=== PATIENT | male | born 1995 ===

== ENCOUNTER 2022-06-04 12:13 | Inpatient (IN) | payer BC ==
[~2022-06-04] VITALS: Ht 182.9 cm; Wt 77.4 kg
[2022-06-04] MEDS ORDERED: APRISO0.375 GM PO (12:35)
[2022-06-04] MEDS ORDERED: BENTYL 20MG20 MG/TAB PO (12:35)
[2022-06-04] MEDS ORDERED: PROTONIX 40MG T40 MG PO (12:35)
[2022-06-04 12:49] VITALS: BP 145/55; PULSE 79; TEMP 101.3
[2022-06-04] MEDS ORDERED: PREDNISONE10 MG PO (12:49)
--- NOTE | 2022-06-04 12:50 | NUR ---
PT ARRIVED VIA EMS @ 1225. PT HAS BEEN UP TO THE BR X2 ET IS CURRENTLY THERE, HAD 1 STOOL THAT WAS FLUSHED. PT INSTRUCTED NOT TO FLUSH NEXT STOOL, VERBALIZES UNDERSTANDING. URINE IS DARK SUJATA ET CLOUDY. PT RATES UPPER ABDOMINAL PAIN 4/10, DENIES NAUSEA. PT STATES THAT HE DID NOT FINISH LEVAQUIN THAT WAS PRESCRIBED EARLIER IN MONTH R/T IT CAUSING DIARRHEA. Ron WALLER MADE AWARE OF PT'S ARRIVAL.
[2022-06-04 14:08] LABS: BASO # 0.1 K/mm3 (0.0-0.2); BASO % 0.7 % (0.0-2.0); EOS # 0.1 K/mm3 (0.0-0.7); EOS % 1.4 % (0.0-4.0); GRAN # 7.7 K/mm3 (1.4-6.5); GRAN % 81.5 % (42.2-75.2); HEMATOCRIT 40.6 % (42.0-52.0); HEMOGLOBIN 14.3 g/dl (13.5-18.0); LYMPH # 0.7 K/mm3 (1.2-3.4); LYMPH % 6.9 % (20.0-51.0); MEAN CELL VOLUME 92 fl (80.0-100.0); MEAN CORPUSCULAR HEMOGLOBIN 33 pg (27-31); MEAN CORPUSCULAR HGB CONC 35 g/dl (33.0-37.0); MEAN PLATELET VOLUME 9.2 fl (7.4-10.4); MONO # 0.8 K/mm3 (0.1-0.6); MONO % 8.8 % (1.7-9.3); PLATELET COUNT 211 K/mm3 (130-400); REDCELL DISTRIBUTION WIDTH-CV 11.7 % (11.5-14.5)
[2022-06-04 14:16] LABS: INR 1.4 (0.8-3.0); PROTHROMBIN TIME 16.3 SECONDS (9.7-12.8)
[2022-06-04 14:31] LABS: ALBUMIN 2.6 gm/dL (3.5-5.0); BILIRUBIN,TOTAL 0.6 mg/dL (0.2-1.2); C-REACTIVE PROTEIN 12.27 mg/dL (0.00-0.50); CALCIUM 8.5 mg/dL (8.4-10.2); CHOLESTEROL RISK RATIO 2.8; CREATININE, serum 0.83 mg/dL (0.72-1.25); MAGNESIUM 1.7 mg/dL (1.6-2.6); POTASSIUM 3.6 mmol/L (3.5-4.5); TOTAL PROTEIN 6.2 gm/dL (6.2-8.1)
[2022-06-04 14:51] LABS: THYROID STIMULATING HORMONE 0.623 uIU/mL (0.350-4.940)
[2022-06-04 15:12] VITALS: BP 101/55; PULSE 68; TEMP 100.5
--- NOTE | 2022-06-04 18:40 | NUR ---
PT HAS RESTED IN BED WITH EYES CLOSED MOST OF AFTERNOON, FAMILY HAS BEEN HERE TO VISIT. IVF INFUSING INTO LEFT FA. PT STATES THAT PAIN HAS BEEN MILD, DENIES NEED FOR PAIN MEDICATION @ THIS TIME. PT HAS BEEN UP TO BR TO HAVE BROWN/RED LIQUID STOOLS BUT UA HAS NOT BEEN COLLECTED, HAS NOT VOIDED SINCE ARRIVING. PT DENIES NAUSEA. RESPIRATIONS HAVE BEEN UNLABORED ON ROOM AIR. CALL LIGHT WITHIN REACH.
--- NOTE | 2022-06-04 20:00 | NUR ---
PT IN BED, IS ALERT AND ORIENTED X4. HAS IVF TO LEFT FOREARM INFUSING WITHOUT PROBLEM. HAS RT FOREARM INT WITH IV POTASSIUM INFUSING WITHOUT PROBLEM. NEW ORDER FOR CDIFF STOOL PER DR MEDINA. IS NPO. ABD FLAT, BS ACTIVE. WAITING FOR UA.
[2022-06-04 20:03] VITALS: BP 106/56; PULSE 54; TEMP 98.9
--- NOTE | 2022-06-04 22:00 | NUR ---
PT CDIFF NEGATIVE. DENIES NEED FOR PAIN MEDS AT THIS TIME.
[2022-06-04 22:18] LABS: CLOSTRIDIUM DIFF A/B NEG; CLOSTRIDIUM DIFF A/B INTERP No C.diff present
[2022-06-04 23:19] VITALS: BP 111/66; PULSE 56; TEMP 97.6
[2022-06-05 03:45] VITALS: BP 102/58; PULSE 59; TEMP 97.6
--- NOTE | 2022-06-05 06:00 | NUR ---
PT ABLE TO VOID PER URINAL, SUJATA CLOUDY URINE. DENIES PAIN. IVF CONTINUE.
[2022-06-05 06:18] LABS: BASO % 0.2 % (0.0-2.0); GRAN # 5.1 K/mm3 (1.4-6.5); GRAN % 85.6 % (42.2-75.2); HEMOGLOBIN 12.9 g/dl (13.5-18.0); LYMPH # 0.7 K/mm3 (1.2-3.4); LYMPH % 11.8 % (20.0-51.0); MEAN CELL VOLUME 93 fl (80.0-100.0); MEAN CORPUSCULAR HEMOGLOBIN 33 pg (27-31); MEAN CORPUSCULAR HGB CONC 35 g/dl (33.0-37.0); MEAN PLATELET VOLUME 8.9 fl (7.4-10.4); MONO # 0.1 K/mm3 (0.1-0.6); MONO % 1.9 % (1.7-9.3); PLATELET COUNT 234 K/mm3 (130-400); RED BLOOD COUNT 3.95 M/mm3 (4.20-5.60); REDCELL DISTRIBUTION WIDTH-CV 11.9 % (11.5-14.5)
[2022-06-05 06:28] LABS: HEMATOCRIT 36.9 % (42.0-52.0)
[2022-06-05 06:39] LABS: CALCIUM 8.5 mg/dL (8.4-10.2); CREATININE, serum 0.69 mg/dL (0.72-1.25); POTASSIUM 4.2 mmol/L (3.5-4.5)
[2022-06-05 06:43] LABS: AMORPHOUS CRYSTAL Present (NOT PRESENT); MUCOUS Present (NOT PRESENT); PH 5 (5-8); SQUAMOUS EPITHELIAL 0-2 /hpf (0-10); URINE APPEARANCE Hazy (CLEAR/HAZY); URINE BACTERIA None Seen /hpf (NONE SEEN); URINE BLOOD Negative (NEGATIVE); URINE COLOR Yellow (YELLOW); URINE GLUCOSE Negative (NEGATIVE); URINE KETONE Trace (NEGATIVE); URINE NITRATE Negative (NEGATIVE); URINE PROTEIN(semi-quant) Negative (NEGATIVE); URINE RBC 0-2 /hpf (0-2); URINE UROBILINOGEN Negative (NEGATIVE)
[2022-06-05 07:16] LABS: COLLECTION METHOD CLEAN CATCH
[2022-06-05 07:24] VITALS: BP 117/62; PULSE 52; TEMP 98.2
--- NOTE | 2022-06-05 09:04 | NUR ---
SW met with the patient to discuss discharge plan. The patient lives in [place] with his girlfriend, Brandon. He reports independence with ADLs and does not have any DME. The patient's PCP is Dr. Sea Parrish at [facility] and he receives his medications at [facility]. The patient does not have a DPOA-HC and he was not interested in completing one at this time. The patient states that he is not and does not have any children. His parents are his next of kin: Rm (ph#[phone]) and Jessica. They both live in [place]. The patient plans to return home with his girlfriend upon discharge. No additional needs at this time. *Discharge plan: home with girlfriend*
--- NOTE | 2022-06-05 10:18 | NUR ---
Initial visit; Patient thanked Information Security for looking in on him and offering God's blessings. Eber says his parents are on their way from [place]. This pleases him along with Information Security's visit and keeping him in her prayers.
[2022-06-05 12:00] VITALS: BP 125/66; PULSE 52; TEMP 97.8
--- NOTE | 2022-06-05 12:09 | NUR ---
DR VELAZQUEZ NOTIFIED OF CONS- ?GALLBLADDER SLUDGE/CHOLETITISIS.
--- NOTE | 2022-06-05 12:50 | NUR ---
UP TO SHOWER. WILL START NEW MED FOR UC AFTER DISCUSSED POC W PT AND MOM. REMICAD IV. BLAND SOFT DIET ORDERED.
[2022-06-05 15:02] VITALS: BP 118/64; PULSE 46; TEMP 98.9
--- NOTE | 2022-06-05 19:45 | NUR ---
PT AMBULATING IN HALLWAY, GAIT STEADY. HAS IVF TO LFA INFUSING WITHOUT PROBLEM. HAS INT TO RFA, FLUSHES WELL. DENIES PAIN. REPORTS STOOLS ARE LOOSE GREEN. TAKING DIET WITHOUT PROBLEM.
[2022-06-05 20:03] VITALS: BP 127/73; PULSE 60; TEMP 97.9
[2022-06-05 23:57] VITALS: BP 122/75; PULSE 53; TEMP 97.5
[2022-06-06] VITALS (7 sets, daily range): BP systolic 121–145; BP diastolic 66–87; PULSE 45–98; TEMP 97.4–98.7
--- NOTE | 2022-06-06 00:30 | NUR ---
PT WATCHING MOVIE. IV ANTIBIOTIC INFUSING WITHOUT PROBLEM. PT REPORTS URINE REMAIN DK YELLOW.
--- NOTE | 2022-06-06 00:42 | NUR ---
HOSPITALIST NERISSA WALLER NOTIFIED OF PTS HR UPPER 30'S TO 40. PT ASYMPTOMATIC WITH B/P 122/75.
--- NOTE | 2022-06-06 06:17 | NUR ---
DENIES PAIN AT THIS TIME. IVF INFUSING. HAS RESTED FAIR THIS SHIFT.
[2022-06-06 07:06] LABS: HEMOGLOBIN 12.3 g/dl (13.5-18.0); MEAN CELL VOLUME 94 fl (80.0-100.0); MEAN CORPUSCULAR HEMOGLOBIN 33 pg (27-31); MEAN CORPUSCULAR HGB CONC 35 g/dl (33.0-37.0); MEAN PLATELET VOLUME 9.2 fl (7.4-10.4); PLATELET COUNT 248 K/mm3 (130-400); RED BLOOD COUNT 3.78 M/mm3 (4.20-5.60); REDCELL DISTRIBUTION WIDTH-CV 11.9 % (11.5-14.5)
[2022-06-06 07:10] LABS: HEMATOCRIT 35.7 % (42.0-52.0)
[2022-06-06 07:23] LABS: CALCIUM 8.3 mg/dL (8.4-10.2); CREATININE, serum 0.66 mg/dL (0.72-1.25); POTASSIUM 4.3 mmol/L (3.5-4.5)
[2022-06-06 07:43] LABS: BAND 18 % (0-10); LYMPHOCYTE 5 % (20.0-51.0); NEUTROPHILS 75 % (42.0-75.2)
[2022-06-06 07:44] LABS: PLATELET ESTIMATE NORMAL (NORMAL)
--- NOTE | 2022-06-06 10:32 | NUR ---
Follow-up visit; Patient states he is doing well and thanks Floor Technician for looking in on him again this morning and offering him God's blessings and wishing him well.
--- NOTE | 2022-06-06 23:12 | NUR ---
PATIENT IN BED, ALERT AND ORIENTED. HS MEDS PER EMAR. DENIES PAIN. STATES HE FEELS LIKE HE MAY NEED TO HAVE ANOTHER BM.
[2022-06-07 03:51] VITALS: BP 121/81; PULSE 31; TEMP 97.6
[2022-06-07 07:37] VITALS: BP 122/74; PULSE 50; TEMP 97.6
[2022-06-07 07:46] LABS: HEMOGLOBIN 12.4 g/dl (13.5-18.0); MEAN CELL VOLUME 94 fl (80.0-100.0); MEAN CORPUSCULAR HEMOGLOBIN 32 pg (27-31); MEAN CORPUSCULAR HGB CONC 34 g/dl (33.0-37.0); PLATELET COUNT 250 K/mm3 (130-400); RED BLOOD COUNT 3.85 M/mm3 (4.20-5.60); REDCELL DISTRIBUTION WIDTH-CV 11.9 % (11.5-14.5)
[2022-06-07 07:51] LABS: HEMATOCRIT 36.3 % (42.0-52.0)
[2022-06-07 08:06] LABS: CALCIUM 8.4 mg/dL (8.4-10.2); CREATININE, serum 0.63 mg/dL (0.72-1.25); MAGNESIUM 1.9 mg/dL (1.6-2.6)
[2022-06-07 08:17] LABS: BAND 5 % (0-10)
[2022-06-07 08:18] LABS: LYMPHOCYTE 3 % (20.0-51.0); NEUTROPHILS 88 % (42.0-75.2); PLATELET ESTIMATE NORMAL (NORMAL)
[2022-06-07] MEDS ORDERED: PREDNISONE10 MG PO (09:40)
[2022-06-07] MEDS ORDERED: ZOFRAN ODT4 MG PO (09:40)
[2022-06-07] MEDS ORDERED: AMOXICILLIN 8751 TAB PO (09:43)
--- NOTE | 2022-06-07 12:00 | NUR ---
PATIENT AND FAMILY GIVEN ALL DISCHARGE INSTRUCTIONS AND PRESCRIPTIONS. BOTH IV'S TAKEN OUT. TELE DISCONTINUED. PATIENT LEFT IN STABLE CONDITION WITH FAMILY.
== END 2022-06-07 12:00 | disposition home or self-care (01) | DRG 385 ==
LOC: JCC 12:13 → SURG 12:25
PROVIDERS: Internal Medicine Infectious Disease; ADMIT Family Medicine
DX: K51.011 Ulcerative (chronic) pancolitis with rectal bleeding (principal); E43 Unspecified severe protein-calorie malnutrition; Z86.16 Personal history of COVID-19; Z20.822 Contact with and (suspected) exposure to COVID-19; E87.6 Hypokalemia; D50.9 Iron deficiency anemia, unspecified; J02.9 Acute pharyngitis, unspecified; K82.8 Other specified diseases of gallbladder; Z68.23 Body mass index [BMI] 23.0-23.9, adult
CPT/HCPCS: 99223-AI; 99233-AI; C9113; J1450; J1644; J2543; J2920; J3475; J3480; J7050; J7120; Q5103